=== PATIENT | female | born 1950 | race American Indian/Alaskan Native ===

== ENCOUNTER 2017-05-04 10:04 | Emergency (ER) | payer OTHER ==
[2017-05-04 10:04] VITALS: BMI 27.4
[2017-05-04 10:18] VITALS: BP 137/85; PULSE 68; RESP 17; TEMP 98; O2SAT 99
--- NOTE | 2017-05-04 11:04 | C.PDOC ---
History Of Present Illness <Anthony Rey - Last Filed: 05/04/17 11:05> <Vibha Chavez - Last Filed: 05/04/17 11:34> 66 y/o female with hx of hypothyroidism, HTN, HLD who is presenting with a one week hx of sore throat. She states that the itch in her throat became a pain that gradually worsened over the week. She denies fevers, chills, or difficulty ingesting solids/liquids. During the last two days she noted a bump on the anterior aspect of her neck, midline which is tender to touch. She is presenting with c/o painful lump on her neck. She has not tried any treatments to help with her condition. (Anthony Rey) History Per: Patient Onset/Duration Of Symptoms: Days Current Symptoms Are (Timing): Still Present Quality Of Discomfort: Aching Severity: Mild Pain Scale Rating Of: 3 Previous Symptoms: Neck Pain Associated Symptoms: None Exacerbating Factor(s): Other (touch) Recent travel outside of the [place]: No <Anthony Rey - Last Filed: 05/04/17 11:05> <ScottVibha - Last Filed: 05/04/17 11:34> Time Seen by Provider: 05/04/17 10:42 Chief Complaint (Nursing): ENT Problem Past Medical History - Medical History PMH: Diabetes, HTN, Hypercholesterolemia, Hyperlipidemia, Hypothyroidism Denies: Chronic Kidney Disease Surgical History: Cholecystectomy (2007) Family History: States: Unknown Family Hx - Social History Hx Tobacco Use: No Hx Alcohol Use: No Hx Substance Use: No - Immunization History Hx Tetanus Toxoid Vaccination: Yes Hx Influenza Vaccination: Yes Hx Pneumococcal Vaccination: Yes <Anthony Rey - Last Filed: 05/04/17 11:05> Vital Signs: Last Vital Signs Temp 98.0 F 05/04/17 10:17 Pulse 68 05/04/17 10:17 Resp 17 05/04/17 10:17 BP 137/85 05/04/17 10:17 Pulse Ox 99 05/04/17 11:13 Review Of Systems Constitutional: Negative for: Fever, Chills Eyes: Negative for: Vision Change ENT: Positive for: Other (neck pain with lump in neck). Negative for: Ear Pain Cardiovascular: Negative for: Chest Pain, Palpitations Respiratory: Positive for: Cough. Negative for: Shortness of Breath Gastrointestinal: Negative for: Nausea, Vomiting, Abdominal Pain, Diarrhea, Constipation Genitourinary: Negative for: Dysuria Musculoskeletal: Positive for: Neck Pain (anterior, midline, tender to palpation ) Skin: Negative for: Rash Neurological: Negative for: Weakness, Numbness <Anthony Rey - Last Filed: 05/04/17 11:05> Physical Exam - Physical Exam Appears: Non-toxic, No Acute Distress Skin: Warm, Dry Head: Atraumatic, Normacephalic Eye(s): bilateral: PERRL, EOMI Nose: Normal Oral Mucosa: Moist Tongue: Normal Appearing Throat: Normal, Erythema (mild), No Exudate Neck: Trachea Midline, Other (midline, 1cm nodule that is tender to palpation) Cardiovascular: Rhythm Regular Gastrointestinal/Abdominal: Soft, No Tenderness, No Distention Neurological/Psych: Oriented x3, Normal Speech, Normal Cognition <Anthony Rey - Last Filed: 05/04/17 11:05> ED Course And Treatment O2 Sat by Pulse Oximetry: 99 <Anthony Rey - Last Filed: 05/04/17 11:05> Supervising Attending Note <Anthony Rey - Last Filed: 05/04/17 11:05> - Attestation: I have personally seen and examined this patient.: Yes I have fully participated in the care of the patient.: Yes I have reviewed all pertinent clinical information: Yes <Vibha Chavez - Last Filed: 05/04/17 11:34> - Notes: Notes:: SORE THROAT X 1 WEEK. NO FEVER CHILLS. MORE PERISTS LUMP FRONT OF L NECK X 2 DAYS BUT HAS HAD INTERMIT LUMP IN AREA X 1 YEAR. +PAIN TO AREA, CONCERNED FOR PERSIST PAIN. EATING AND DRINKING WO DIFF. SAW PMD FOR SAME, LAST THYROID EVAL 1 MO AGO "IT WAS ALL NORMAL". 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 NO OTHER ASSOC SX. DENIES HO SMOKING. EXAM FIRM SUBCUT NODULE MIDLINE ABOVE STERNAL NOTCH. MIN LOCAL TEND NO FLUCTUANCE. ADVISED NEED FOR POSSIBLE THYROID, ADDL RADIOLOGIC TESTING FU PMD (Vibha Chavez) Disposition <Anthony Rey - Last Filed: 05/04/17 11:05> Counseled Patient/Family Regarding: Diagnosis, Need For Followup - Disposition Disposition Time: 11:34 <Vibha Chavez - Last Filed: 05/04/17 11:34> - Disposition Referrals: YOUR,PMD [Other] Disposition: HOME/ ROUTINE Condition: GOOD Additional Instructions: SEE YOUR PMD FOR FURTHER TESTING, POSSIBLE NEED FOR BIOPSY OR ULTRASOUND Instructions: Thyroid Nodules (ED) Forms: [employer] (Colombian) - Clinical Impression Clinical Impression: Thyroid nodule
== END 2017-05-04 11:42 | disposition home or self-care (01) ==
LOC: C.ER 10:04
DX: E04.1 Nontoxic single thyroid nodule (principal)

== ENCOUNTER 2018-01-03 12:12 | Emergency (ER) | payer MEDICARE ==
[2018-01-03 12:12] VITALS: BMI 27.4
[2018-01-03 12:21] VITALS: RESP 16; TEMP 98
--- NOTE | 2018-01-03 12:33 | C.PDOC ---
History Of Present Illness 67 y/o female presents to the ED complaining of left lower toothache since having a filling done on 12/04. Patient states she is concerned that the dentist may not have used appropriate techniques. Requesting referral to see a new dentist. Otherwise patient denies any fever, chills, swelling, or trauma. Time Seen by Provider: 01/03/18 12:24 Chief Complaint (Nursing): Dental Pain History Per: Patient History/Exam Limitations: no limitations Onset/Duration Of Symptoms: Days Current Symptoms Are (Timing): Still Present Past Medical History Reviewed: Historical Data, Nursing Documentation, Vital Signs Vital Signs: Last Vital Signs Temp 98 F 01/03/18 12:18 Pulse 78 01/03/18 12:44 Resp 16 01/03/18 12:44 BP 122/79 01/03/18 12:44 Pulse Ox 98 01/03/18 12:44 - Medical History PMH: Diabetes, HTN, Hypercholesterolemia, Hyperlipidemia, Hypothyroidism Denies: Chronic Kidney Disease Surgical History: Cholecystectomy (2007) Family History: States: Unknown Family Hx - Social History Hx Tobacco Use: No Hx Alcohol Use: No Hx Substance Use: No - Immunization History Hx Tetanus Toxoid Vaccination: Yes Hx Influenza Vaccination: Yes Hx Pneumococcal Vaccination: Yes Review Of Systems Except As Marked, All Systems Reviewed And Found Negative. Constitutional: Negative for: Fever, Chills Eyes: Negative for: Vision Change ENT: Positive for: Other (dental pain). Negative for: Mouth Swelling Skin: Negative for: Rash Physical Exam - Physical Exam Appears: Well, Non-toxic, No Acute Distress Skin: Warm, Dry, No Rash Head: Normacephalic Eye(s): bilateral: Normal Inspection, PERRL, EOMI Teeth: No Normal Dentition (poor dentition), Caries (multiple caries throughout) , Other (Left lower molar with questionable filling, multiple caries, no periapical swelling, no tenderness) Gingiva: Normal Appearing, No Swelling, No Abscess Neck: Normal ROM, Supple Chest: Symmetrical Cardiovascular: Rhythm Regular, No Murmur Respiratory: Normal Breath Sounds, No Accessory Muscle Use, No Wheezing Neurological/Psych: Oriented x3, Normal Speech ED Course And Treatment O2 Sat by Pulse Oximetry: 97 (RA) Pulse Ox Interpretation: Normal Medical Decision Making Medical Decision Making: Impression: persistent discomfort L lower molar area no abscess/no inflammation multiple carries further Dental options offered. Disposition Doctor Will See Patient In The: Office Counseled Patient/Family Regarding: Studies Performed, Diagnosis - Disposition Referrals: [facility] [Provider Group] [facility] [Provider Group] Disposition: HOME/ ROUTINE Disposition Time: 12:32 Condition: GOOD Additional Instructions: continue Motrin/Advil 400-600 mg every 6 hours as needed No further antibiotics at this time. Pepcid 20 mg @ night to prevent stomach irritation/Gastritis from the Motrin Call for further Dental Eval: [facility] and outpatient locations below List of local dentistry given. Instructions: Dental Pain (DC) Forms: [employer] (Chinese) - Clinical Impression Clinical Impression: Dentalgia - Scribe Statement The provider has reviewed the documentation as recorded by the Scribe (Ale Rudolph) Provider Attestation: All medical record entries made by the Scribe were at my direction and personally dictated by me. I have reviewed the chart and agree that the record accurately reflects my personal performance of the history, physical exam, medical decision making, and the department course for this patient. I have also personally directed, reviewed, and agree with the discharge instructions and disposition.
[2018-01-03 12:45] VITALS: BP 122/79; PULSE 78
[2018-01-03 13:34] VITALS: O2SAT 97
== END 2018-01-03 12:44 | disposition home or self-care (01) ==
LOC: C.ER 12:12
DX: K08.89 Other specified disorders of teeth and supporting structures (principal)

== ENCOUNTER 2018-04-30 06:38 | Inpatient (IN) | payer MEDICARE ==
[2018-04-18 10:02] VITALS: BMI 29.2
[2018-04-30] MEDS ORDERED: Clindamycin 2% Vaginal Cream(40 gm) ONE (08:46)
[2018-04-30] MEDS ORDERED: Methylene Blue 10 mg/mL(10ml) IV ONE (08:46)
[2018-04-30] MEDS ORDERED: cefOXitin IV 2 gm in Dextrose 2 GM/50 ML BAG IVPB ONE (08:46)
[2018-04-30] MEDS ORDERED: Vasopressin 20 Units/ml Inj ONE (08:47)
[2018-04-30] MEDS ORDERED: Propofol 10 mg/ml Inj (20 ML) ONE (09:43)
[2018-04-30] MEDS ORDERED: Midazolam 2 MG/2 ML VIAL ONE (09:43)
[2018-04-30] MEDS ORDERED: Atropine Sulfate 0.4 mg/ml (0.8mg/2ml) Syringe IV ONE (10:28)
[2018-04-30] MEDS ORDERED: HYDROmorphone 0.5 mg/0.5 ml ISec IVP PRN (11:38)
[2018-04-30] MEDS ORDERED: Lactated Ringer's 1,000 ML IV SCH (11:45)
--- NOTE | 2018-04-30 12:25 | PCM.SURG1 ---
Surgeon's Initial Post Op Note - Surgeon's Notes Surgeon: Dr. Oliver General Duty Nurse: TERRI Type of Anesthesia: General LMA Anesthesia Administered By: Dr. Calvin Pre-Operative Diagnosis: 67 yo with Cystocele grade III, rectocele grade II Operative Findings: Pelvic Organ Prolapse( Cystocele grade III, Rectocele Grade II) Post-Operative Diagnosis: Same as above Operation Performed: Anterior/ posterior Colporraphy/ Repair, Cystoscopy Specimen/Specimens Removed: Vaginal epithelium Estimated Blood Loss: EBL {In ML}: 50 Blood Products Given: N/A Drains Used: No Drains Post-Op Condition: Good Date of Surgery/Procedure: 04/30/18 Time of Surgery/Procedure: 12:25
[2018-04-30] MEDS ORDERED: Lactated Ringer's 1,000 ML IV ONE (12:31)
[2018-04-30] MEDS: ceFAZolin 2 GM in Sodium Chloride 0.9% 100 ML IVPB SCH (17:48)
--- NOTE | 2018-04-30 22:56 | OP ---
PROCEDURE DATE: 04/30/2018 PREOPERATIVE DIAGNOSIS: A 67-year-old female with a cystocele grade III as well as rectocele grade III and pelvic pain and pelvic organ prolapse grade III. POSTOPERATIVE DIAGNOSIS: A 67-year-old female with a cystocele grade III as well as rectocele grade III and pelvic pain and pelvic organ prolapse grade III. PROCEDURE: Anterior repair, which is an anterior colporrhaphy, posterior repair as well as a cystoscopy. SURGEON: Shae Oliver MD HIGHWAY PAINTER: TYPE OF ANESTHESIA: General endotracheal tube. ANESTHESIOLOGIST: Dr. Calvin OPERATIVE FINDINGS: Grade III cystocele and grade II rectocele. It was also noted that she had prolapse of the uterus and the cervix. SPECIMEN: Trimmed vaginal mucosa from anterior and posterior vaginal wall. ESTIMATED BLOOD LOSS: 50 mL. COMPLICATIONS: None. CLINICAL NOTES: The patient is a 67-year-old female who has a longstanding history of pelvic organ prolapse which she has now become symptomatic. After conservative management and unsuccessful trial of a pessary, she elected to have surgical management. She was counseled and aware of the risks of the surgery as well as the potential for reoccurrence, chronic pelvic pain, dyspareunia, fistula formation and the risks factors included infection, bleeding, damage to the surrounding organs and tissues, complication from anesthesia and possible . All were discussed prior to obtaining the consent, and she understood all the risk factors. Her daughter was present during the conversation, consent was then signed, and she was cleared for surgery for anesthesia. DESCRIPTION OF PROCEDURE: In that particular case, the patient was then taken to the operating room, given general anesthesia, which was found to be adequate, placed in dorsal lithotomy position. The patient was prepped and draped in a normal sterile fashion. A Garcia catheter was placed into the bladder, and the bladder was drained 200 mL. An examination under anesthesia revealed that she had a cystocele grade III and a rectocele grade II. A weighted speculum was placed into the vagina. Diluted vasopressin was infiltrated. A small incision was made in the vaginal mucosa, and the Metzenbaum scissors were then used to dissect the mucosa of the cystocele and to cut the vaginal mucosa in the midline. The cut edges were then held with Allis clamps. The bladder was dissected away along the lateral edges with a combination of sharp and blunt dissection exposing the vesicular vaginal space. A series of 2-0 Vicryl interrupted sutures were then placed along the lateral folds of the vesicular vaginal space and brought together to touch the bladder bag while simultaneously bringing the lateral vaginal tissue together. Excessive vaginal mucosa was then trimmed, and the vagina was then closed with a running locked 0 Vicryl suture. The Garcia catheter was then removed, and a 70-degree cystoscopy was inserted into the bladder. The bladder was intact and normal looking but no evidence of trauma or perforation. The bilateral ureter jets were visualized. The bladder was then drained from the sheath of the cystoscopy, and then the cystoscopy was removed, and a Garcia catheter was replaced. Now particular time, attention was then turned to the rectocele, which diluted vasopressin was infiltrated under the posterior vaginal mucosa midline and into the peritoneal body. A triangle was cut in the peritoneum. The posterior vaginal mucosa was then opened vertically in midline up to the apex of the rectocele, and the cut edge was then held with Allis clamps. The opened vaginal mucosa was then dissected laterally with a combination of sharp and blunt dissection exposing the pararectal fascia. The pararectal fascia was then reapproximated with interrupted 2-0 Vicryl sutures to draw the lateral folds together and tucked the rectocele's back. Deep interrupted sutures of the 3-0 Vicryl were used to reapproximate the fibers of levator ani muscle. Excessive vaginal wall was closed with a running locked 0 Vicryl to the hymen tag. The superficial peritoneal muscles were then close with a running unlocked 0 Vicryl, and the peritoneal skin was closed with running subcu 2-0 chromic. Rectal exam was then repeated through out the repair, and there were no sutures penetrating the rectal tissue. Upon completion, all instruments were removed from the vagina. Instrument and lap counts were correct x2. Vaginal packing was placed into the vagina. The patient was instructed to remove the vaginal packing in the next following day. Shae Oliver MD
[2018-05-01] MEDS: ceFAZolin 2 GM in Sodium Chloride 0.9% 100 ML IVPB SCH ×2 (01:16→10:06)
[2018-05-01 08:21] LABS: HEMOGLOBIN 11.8 g/dL (11.0-16.0); MEAN CELL VOLUME 92.3 fL (81.0-99.0); MEAN CORPUSCULAR HEMOGLOBIN 31.8 pg (27.0-31.0); MEAN CORPUSCULAR HGB CONC 34.5 g/dL (33.0-37.0); MEAN PLATELET VOLUME 8.4 fL (7.2-11.7); RBC 3.7 Mil/uL (3.80-5.20); RED CELL DISTRIBUTION WIDTH 14.4 % (11.5-14.5); WHITE BLOOD COUNT 8.4 K/uL (4.8-10.8)
[2018-05-01 08:45] VITALS: BP 124/70; PULSE 64; RESP 18; TEMP 97.8; O2SAT 98
--- NOTE | 2018-05-01 10:07 | CP.PCM.PN ---
Subjective - Date & Time of Evaluation Date of Evaluation: 05/01/18 Time of Evaluation: 10:06 - Subjective Subjective: doing well, sore throat improves with eating Objective - Vital Signs/Intake and Output Vital Signs (last 24 hours): Temp Pulse Resp BP Pulse Ox 97.8 F 64 18 124/70 98 05/01/18 08:00 05/01/18 08:00 05/01/18 08:00 05/01/18 08:00 05/01/18 08:00 Intake and Output: 05/01/18 05/01/18 06:59 18:59 Intake Total 1520 Output Total 2350 Balance -830 - Medications Medications: Current Medications Docusate Sodium (Colace) 100 mg PO BID [facility] Last Admin: 04/30/18 17:43 Dose: 100 mg Lactated Ringer's (Lactated Ringer's) 1,000 mls @ 100 mls/hr IV .Q10H [facility] Last Admin: 04/30/18 23:40 Dose: 100 mls/hr Cefazolin Sodium 2 gm/ Sodium (Chloride) 100 mls @ 200 mls/hr IVPB Q8H [facility]; Protocol Stop: 05/01/18 10:29 Last Admin: 05/01/18 01:16 Dose: 200 mls/hr Ibuprofen (Motrin Tab) 600 mg PO TID [facility] Last Admin: 04/30/18 23:37 Dose: 600 mg Ondansetron HCl (Zofran Inj) 4 mg IVP ONCE PRN PRN Reason: Nausea/Vomiting - Labs Labs: 05/01/18 08:09 - Constitutional Appears: Well, No Acute Distress - Head Exam Head Exam: NORMOCEPHALIC - Eye Exam Eye Exam: Normal appearance - ENT Exam ENT Exam: Normal Exam - Neck Exam Neck Exam: Full ROM - Respiratory Exam Respiratory Exam: NORMAL BREATHING PATTERN - GI/Abdominal Exam GI & Abdominal Exam: Soft. absent: Distended, Guarding, Rigid, Rebound - Exam Exam: NORMAL INSPECTION (vaginal pack removed) Assessment and Plan - Assessment and Plan (Free Text) Assessment: post day 1 A&P repair routine advances discharge when meeting milestones
[2018-05-01] MEDS ORDERED: Benzocaine/Menthol (Cepacol) Lozenge MT SCH (14:00)
== END 2018-05-01 15:30 | disposition home or self-care (01) | DRG 748 ==
LOC: C.SDS 06:38 → C.4M 13:56
PROVIDERS: ADMIT Obstetrics & Gynecology; ATTEND Obstetrics & Gynecology
PROC: 0TJB8ZZ Inspection of Bladder, Via Natural or Artificial Opening Endoscopic (ICD-10-PCS; 2018-04-30)
PROC: 0JQC0ZZ Repair Pelvic Region Subcutaneous Tissue and Fascia, Open Approach (ICD-10-PCS; principal; 2018-04-30 08:00)
PROC: 0JQC0ZZ Repair Pelvic Region Subcutaneous Tissue and Fascia, Open Approach (ICD-10-PCS; 2018-04-30 08:00)
DX: N81.3 Complete uterovaginal prolapse (principal); N81.2 Incomplete uterovaginal prolapse

== ENCOUNTER 2018-08-01 09:10 | Outpatient (CLI) | payer MEDICARE | END 2018-08-01 09:11 | disposition home or self-care (01) | LOC: C.USIC 09:10 ==

== ENCOUNTER 2018-09-18 11:53 | Outpatient (CLI) | payer MEDICARE | END 2018-09-18 11:54 | disposition home or self-care (01) | LOC: C.RADIC 11:53 | DX: R06.02 Shortness of breath (principal) ==